=== PATIENT | female | born 2000 | race Caucasian/White ===

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

== ENCOUNTER 2021-03-07 10:21 | Emergency (ER) | payer OTHER, SELFPAY ==
[2021-03-07 10:27] VITALS: BP 144/83; PULSE 114; RESP 16; TEMP 36.5; O2SAT 98
--- NOTE | 2021-03-07 10:47 | ED.URI ---
HPI - URI/Sore Throat General Chief Complaint: Ear Stated Complaint: EARACHE/DRAINAGE/SINUS Time Seen by Provider: 03/07/21 10:46 Source: patient and RN notes reviewed Mode of arrival: ambulatory Limitations: no limitations History of Present Illness HPI Narrative: 20-year-old female presents with concern for nasal congestion, bilateral ear pain, sinus drainage, scratchy throat that started yesterday. She has been fully vaccinated for Covid. She denies fever, body aches, chills, sweats. Reports occasional cough to clear the mucus. Reports she took Advil sinus with no relief. MD elicited complaint: nasal congestion Related Data Home Medications Medication Instructions Recorded Confirmed escitalopram oxalate mg 03/07/21 Allergies Allergy/AdvReac Type Severity Reaction Status Date / Time Penicillins Allergy Mild HIVES Verified 03/07/21 10:28 Sulfa (Sulfonamide Allergy Mild HIVES Verified 03/07/21 10:28 Antibiotics) clindamycin Allergy Unknown JACINTO Verified 03/07/21 10:28 Review of Systems Review of Systems: CONSTITUTIONAL: Denies malaise, chills, sweats, or fever. EYES: Denies visual changes, redness, or discharge. ENT: Reports rhinorrhea, congestion, otalgia and scratchy throat. CARDIOVASCULAR: Denies chest pain, palpitations, or edema. RESPIRATORY: Reports occasional cough. Denies dyspnea. GASTROINTESTINAL: Denies abdominal pain, nausea, vomiting, diarrhea SKIN: Denies rash or itching. MUSCULOSKELETAL: Denies myalgia. NEUROLOGIC: Denies headache. All systems reviewed & are unremarkable except as noted in HPI and below PMFSH Past Medical History Medical History (Updated 03/07/21 @ 10:55 by Ngoc Olivarez NP) Depression Surgical History Surgical History (Updated 12/21/19 @ 20:10 by Alvarez Mendoza MD) No pertinent past surgical history Family History Family History Father Cleft lip Social History Social History Smoking status: Never smoker Substance use: never Gender identity (if verbalized by the patient): Female Spiritual care concerns: No Comments At time of signature, agree with nursing past medical, surgical, social and family history. There is no relevant family history pertinent to the presenting complaint Exam Narrative: GENERAL: Well-appearing, well-nourished, and in no acute distress. HEAD: Normocephalic EYES: PERRLA, conjunctivae clear ENT: Nares clear, left turbinates edematous and erythematous, clear discharge. Mucous membranes moist. TM pearly mena with sharp light reflex bilaterally; no tragal tenderness. Oropharynx not erythematous without lesions. Tonsils not enlarged and without exudate, no drooling, no hoarseness, no trismus, uvula midline. NECK: Supple. No lymphadenopathy CHEST: Clear to auscultation, breath sounds equal. No wheezing, rhonchi, rales, or stridor. No respiratory distress, speaks in full sentences. HEART: Regular rate and rhythm. No murmur heard. SKIN: Warm, dry, no rash. NEURO: Alert and oriented x3. PSYCH: Normal mood and affect Course Course Emergency Course: Patient is aware of diagnosis, understands and agrees to treatment plan. Anticipatory guidance given. Patient agrees to follow-up as directed and is aware of reasons to seek care at the emergency department. Portions of this record may have been created with voice recognition software Vital Signs Vital signs: Vital Signs Temperature 97.7 F 03/07/21 10:27 Pulse Rate 114 H 03/07/21 10:27 Respiratory Rate 16 03/07/21 10:27 Blood Pressure 144/83 H 03/07/21 10:27 Pulse Oximetry 98 03/07/21 10:27 Temperature 97.7 F 03/07/21 10:27 Pulse Rate 114 H 03/07/21 10:27 Respiratory Rate 16 03/07/21 10:27 Blood Pressure 144/83 H 03/07/21 10:27 Pulse Oximetry 98 03/07/21 10:27 Reviewed. Patient has been instructed to follow up with her primary care provider
== END 2021-03-07 11:08 | disposition home or self-care (01) ==
PROVIDERS: Emergency Provider Nurse Practitioner
DX: J06.9 Acute upper respiratory infection, unspecified (principal); F32.A Depression, unspecified
CPT/HCPCS: 99213; G0463

== ENCOUNTER 2022-04-21 17:38 | Emergency (ER) | payer BC, OTHER, SELFPAY ==
[2022-04-21 17:49] VITALS: BP 99/86; PULSE 122; RESP 16; TEMP 36.8; O2SAT 100
--- NOTE | 2022-04-21 18:25 | ED.URI ---
HPI - URI/Sore Throat General Chief Complaint: Upper Respiratory Infection Stated Complaint: SORE THROAT/BODY ACHES/SINUS CONGESTION Time Seen by Provider: 04/21/22 18:00 Source: patient, RN notes reviewed and old records reviewed Mode of arrival: ambulatory Limitations: no limitations History of Present Illness HPI Narrative: 21 year old female presents to [facility] care with complaints of sore throat ear pain, nasal congestion and body aches starting yesterday around 4pm. Patient reports that she has been taking DayQuil and NyQuil for her symptoms. Patient denies any known fevers, chills or sweats, has had COVID vaccinations but no flu shot. Patient reports that she had COVID in December and she had an ear infection in March. Patient states that she took home COVID test today which was negarive. MD elicited complaint: sore throat, rhinorrhea, nasal congestion and other (ear pain) Onset (ago): day(s) (yesterday at 4pm) Pain scale (0-10): 4 Description of mucous: clear Treatments prior to arrival: other (DayQuil and NyQuil) Related Data Home Medications Medication Instructions Recorded Confirmed escitalopram oxalate 10 mg tablet 10 mg PO DAILY 03/07/21 04/21/22 Allergies Allergy/AdvReac Type Severity Reaction Status Date / Time Penicillins Allergy Mild HIVES Verified 04/21/22 17:42 Sulfa (Sulfonamide Allergy Mild HIVES Verified 04/21/22 17:42 Antibiotics) clindamycin Allergy Unknown [facility] Verified 04/21/22 17:42 Review of Systems Review of Systems: CONSTITUTIONAL: Denies malaise, chills, sweats, or fever. EYES: Denies visual changes, redness, or discharge. ENT: Reports rhinorrhea, congestion, sinus pain, otalgia and sore throat. CARDIOVASCULAR: Denies chest pain, palpitations, or edema. RESPIRATORY: Denies cough.? Denies dyspnea. GASTROINTESTINAL: Denies abdominal pain, nausea, vomiting, diarrhea SKIN: Denies rash or itching. MUSCULOSKELETAL:Reports myalgia. NEUROLOGIC: Denies headache. All systems reviewed & are unremarkable except as noted in HPI and below PMFSH Past Medical History Medical History (Updated 04/22/22 @ 01:01 by Rosalia Stevenson NP) Anxiety and depression Depression Hidradenitis suppurativa Surgical History Surgical History (Updated 04/22/22 @ 01:01 by Rosalia Stevenson NP) History of tonsillectomy and adenoidectomy Family History Family History Father Cleft lip Social History Social History Smoking status: Never smoker Substance use: never Gender identity (if verbalized by the patient): Female Spiritual care concerns: No Comments At time of signature, agree with nursing past medical, surgical, social and family history. There is no relevant family history pertinent to the presenting complaint Exam Narrative: GENERAL: Well-appearing, well-nourished, and in no acute distress. HEAD: Normocephalic EYES: PERRLA, conjunctivae clear ENT: Nares clear, turbinates edematous and erythematous, clear discharge. Mucous membranes moist. TM pearly mena with dull light reflex bilaterally; no tragal tenderness. Oropharynx erythematous without lesions. Tonsils not present and without throat exudate, no drooling, no hoarseness, no trismus, uvula midline. NECK: Supple. No lymphadenopathy CHEST: Clear to auscultation, breath sounds equal. No wheezing, rhonchi, rales, or stridor. No respiratory distress, speaks in full sentences.no cough noted SAO2 100% on room air HEART: Regular rate and rhythm. No murmur heard. SKIN: Warm, dry, no rash. NEURO: Alert and oriented x3. PSYCH: Normal mood and affect Course Course Emergency Course: Patient is aware of diagnosis, understands and agrees to treatment plan.? Anticipatory guidance given.? Patient agrees to follow-up as directed and is aware of reasons to seek care at the emergency department. Portions o
== END 2022-04-21 18:34 | disposition home or self-care (01) ==
PROVIDERS: Emergency Provider Registered Nurse
DX: J06.9 Acute upper respiratory infection, unspecified (principal); F41.9 Anxiety disorder, unspecified; F32.A Depression, unspecified
CPT/HCPCS: 87804; 99213; G0463

== ENCOUNTER 2023-01-24 17:02 | Emergency (ER) | payer BC, OTHER, SELFPAY ==
[2023-01-24 17:43] VITALS: BP 147/94; PULSE 87; RESP 20; TEMP 36.6; O2SAT 100
[2023-01-24 17:57] VITALS: BP 116/70
--- NOTE | 2023-01-24 18:09 | ED.URI ---
HPI - URI/Sore Throat General Chief Complaint: Upper Respiratory Infection Stated Complaint: throat hurts,cough,migraine Time Seen by Provider: 01/24/23 17:55 Source: patient Mode of arrival: ambulatory Limitations: no limitations History of Present Illness HPI Narrative: 22-year-old female presents with complaint of low-grade fever, sore throat, cough, migraine starting this morning. Patient had negative home COVID test. Has not taking any [id number] medications to treat her symptoms. Denies nausea vomiting diarrhea all systems reviewed and negative except as noted above. Related Data Home Medications Medication Instructions Recorded Confirmed escitalopram oxalate 10 mg tablet 10 mg PO DAILY 03/07/21 01/24/23 bupropion HCl 150 mg 24 hr tablet, 150 mg PO DIRECTED 01/24/23 01/24/23 extended release meclizine 12.5 mg tablet 12.5 mg PO DIRECTED PRN 01/24/23 01/24/23 Dizziness Or Vertigo Allergies Allergy/AdvReac Type Severity Reaction Status Date / Time Penicillins Allergy Mild HIVES Verified 01/24/23 17:10 Sulfa (Sulfonamide Allergy Mild HIVES Verified 01/24/23 17:10 Antibiotics) clindamycin Allergy Unknown JACINTO Verified 01/24/23 17:10 Review of Systems Review of Systems: CONSTITUTIONAL: Denies fever, fatigue. Denies chills, or sweats. EYES: Denies visual changes, redness, or discharge. ENT: Denies rhinorrhea, congestion, sore throat, or otalgia. CARDIOVASCULAR: Denies chest pain, palpitations, or edema. RESPIRATORY: Reports cough. Denies dyspnea. GASTROINTESTINAL: Denies abdominal pain, nausea, vomiting, or diarrhea. GENITOURINARY: Denies dysuria or hematuria. SKIN: Denies rash or itching. MUSCULOSKELETAL: Denies back pain, joint pain, or myalgia. NEUROLOGIC: reports headache. Denies numbness, or weakness. PSYCHIATRIC: Denies anxiety or depression. All other systems reviewed are negative, except as documented in HPI. [facility] Past Medical History Medical History (Updated 01/24/23 @ 18:12 by April Whitt NP) Anxiety and depression Depression Hidradenitis suppurativa Surgical History Surgical History (Updated 04/22/22 @ 01:01 by Rosalia L. Elva, [employer]) History of tonsillectomy and adenoidectomy Family History Family History Father Cleft lip Social History Social History Smoking status: Never smoker Substance use: never Gender identity (if verbalized by the patient): Female Spiritual care concerns: No Comments At time of signature, agree with nursing past medical, surgical, social and family history. There is no relevant family history pertinent to the presenting complaint. Exam Narrative: GENERAL: This is a well-nourished, well-developed patient, in no apparent distress. HEAD: normocephalic, atraumatic. EYES: PERRL. Sclera clear/white. Vision is grossly intact. EARS: External ears normal, auditory canals clear and without drainage, TMs normal without perforation. Hearing grossly intact. NOSE: External nose normal with no obvious nasal discharge, nares without redness, no rhinorrhea. THROAT: Mucous membranes moist, posterior pharynx clear. NECK: Neck supple, non-tender without lymphadenopathy, masses or thyromegaly. CARDIOVASCULAR: Regular rate and rhythm without murmurs, gallops, or rubs. RESPIRATORY: Clear to auscultation. Breath sounds equal bilaterally. No wheezes, rales, or rhonchi. SKIN: warm, Dry, intact with no suspicious lesions or rash, good texture and turgor. NEURO: awake, alert, and oriented to person, place and time. There were no obvious focal neurologic abnormalities. EXTREMITIES: No joint tenderness, effusion, or edema noted. Course Course Level of Care: Express Care Visit Vital Signs Vital signs: Vital Signs Temperature 36.6 C 01/24/23 17:43 Pulse Rate 87 01/24/23 17:43 Respiratory Rate 20 01/24
== END 2023-01-24 18:16 | disposition home or self-care (01) ==
PROVIDERS: Emergency Provider Nurse Practitioner Family
DX: J06.9 Acute upper respiratory infection, unspecified (principal); F41.9 Anxiety disorder, unspecified; F32.A Depression, unspecified; Z79.899 Other long term (current) drug therapy
CPT/HCPCS: 87081; 87804; 87880; 99213; G0463

== ENCOUNTER 2023-03-28 16:26 | Emergency (ER) | payer BC, OTHER, SELFPAY ==
[2023-03-28 18:19] VITALS: BP 114/90; PULSE 100; RESP 16; TEMP 36.8; O2SAT 100
--- NOTE | 2023-03-28 19:00 | ED.URI ---
HPI - URI/Sore Throat General Chief Complaint: Upper Respiratory Infection Stated Complaint: Sore Throat;Bodyache;Fever Time Seen by Provider: 03/28/23 19:00 Source: patient, RN notes reviewed and old records reviewed Mode of arrival: ambulatory Limitations: no limitations History of Present Illness HPI Narrative: 22 year old female who [facility] with complaints of sore throat, body ache and stated fevers since yesterday. Patient reports that she did home COVID test which was negative.. Patient reports that she has been taking Tylenol and has been using cough drops to soothe her throat. Patient reports that she has only had low grade temperature highest 99.8F. 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 MD elicited complaint: fever, sore throat and other (bodyaches) Pertinent past history: asthma (childhood) and other (tonsillitis has had T&A) Onset (ago): day(s) (day 2 symptoms) Related Data Home Medications Medication Instructions Recorded Confirmed escitalopram oxalate 10 mg tablet 10 mg PO DAILY 03/07/21 03/28/23 bupropion HCl 150 mg 24 hr tablet, 150 mg PO DIRECTED 01/24/23 03/28/23 extended release conjugated estrogens 0.625 mg/gram 1 applic topical DIRECTED 03/28/23 03/28/23 vaginal cream (Premarin) hydrocortisone 2.5 % topical cream 1 applic topical DIRECTED 03/28/23 03/28/23 with perineal applicator verapamil 120 mg tablet,extended 120 mg PO DIRECTED 03/28/23 03/28/23 release Allergies Allergy/AdvReac Type Severity Reaction Status Date / Time Penicillins Allergy Mild HIVES Verified 03/28/23 18:15 Sulfa (Sulfonamide Allergy Mild HIVES Verified 03/28/23 18:15 Antibiotics) clindamycin Allergy Unknown JACINTO Verified 03/28/23 18:15 Review of Systems Review of Systems: CONSTITUTIONAL: reports malaise, chills, sweats, low grade fever. EYES: Denies visual changes, redness, or discharge. ENT: Reports rhinorrhea, congestion,no sinus pain, otalgia and sore throat. CARDIOVASCULAR: Denies chest pain, palpitations, or edema. RESPIRATORY: Reports no acute cough.? Denies dyspnea. GASTROINTESTINAL: Denies abdominal pain, nausea, vomiting, diarrhea SKIN: Denies rash or itching. MUSCULOSKELETAL:Positive for myalgia. NEUROLOGIC: Positive headache. All systems reviewed & are unremarkable except as noted in HPI and below PMFSH Past Medical History Medical History (Updated 03/30/23 @ 12:05 by Rosalia Stevenson NP) Anxiety and depression Depression Hidradenitis suppurativa Surgical History Surgical History (Updated 04/22/22 @ 01:01 by Rosalia Stevenson NP) History of tonsillectomy and adenoidectomy Family History Family History Father Cleft lip Social History Social History Smoking status: Never smoker Substance use: never Gender identity (if verbalized by the patient): Female Spiritual care concerns: No Comments At time of signature, agree with nursing past medical, surgical, social and family history. There is no relevant family history pertinent to the presenting complaint Exam Narrative: GENERAL: Well-appearing, well-nourished, and in no acute distress. HEAD: Normocephalic EYES: PERRLA, conjunctivae clear ENT: Nares clear, turbinates edematous and erythematous, clear discharge. Mucous membranes moist. TM pearly mena with dull light reflex bilaterally; no tragal tenderness. Oropharynx erythematous without lesions. Tonsils not present and throat without exudate, no drooling, no hoarseness, no trismus, uvula midline.post nasal drainage NECK: Supple. No lymphadenopathy CHEST: Clear to auscultation, breath sounds equal. No wheezing, rhonchi, rales, or stridor. No respiratory distress, speaks in full sentences.SAO2 100% on room air
== END 2023-03-28 19:23 | disposition home or self-care (01) ==
PROVIDERS: Emergency Provider Registered Nurse
DX: J06.9 Acute upper respiratory infection, unspecified (principal); Z79.899 Other long term (current) drug therapy
CPT/HCPCS: 87081; 87804; 87880; 99213; G0463

== ENCOUNTER 2023-04-02 11:05 | Emergency (ER) | payer BC, OTHER, SELFPAY ==
[2023-04-02 11:24] VITALS: BP 126/81; PULSE 72; RESP 16; TEMP 36.8; O2SAT 99
--- NOTE | 2023-04-02 12:14 | ED.EAR ---
HPI - Ear Problem General Chief complaint: Ear Stated complaint: both ears painful Time Seen by Provider: 04/02/23 12:14 Source: patient Mode of arrival: ambulatory Limitations: no limitations History of Present Illness HPI Narrative: 22 yo F presents with c/o sore throat, congestion for 5 days. Sore throat resolved. Had fever for only 1 day. Denies N/v/D. Had neg strep 5 days ago at . States now having really bad pain to both ears. Ear pain worse with swallowing and yawning. pt use to use an ear oil for dry canals but can't find it. requesting refill. All systems reviewed and negative except as noted above. Related Data Home Medications Medication Instructions Recorded Confirmed escitalopram oxalate 10 mg tablet 10 mg PO DAILY 03/07/21 03/28/23 bupropion HCl 150 mg 24 hr tablet, 150 mg PO DIRECTED 01/24/23 03/28/23 extended release conjugated estrogens 0.625 mg/gram 1 applic topical DIRECTED 03/28/23 03/28/23 vaginal cream (Premarin) verapamil 120 mg tablet,extended 120 mg PO DIRECTED 03/28/23 03/28/23 release Allergies Allergy/AdvReac Type Severity Reaction Status Date / Time Penicillins Allergy Mild HIVES Verified 04/02/23 11:51 Sulfa (Sulfonamide Allergy Mild HIVES Verified 04/02/23 11:51 Antibiotics) clindamycin Allergy Unknown JACINTO Verified 04/02/23 11:51 Review of Systems Review of Systems: CONSTITUTIONAL: Denies fever, chills, or sweats. EYES: Denies visual changes, redness, or discharge. ENT: Reports rhinorrhea, congestion. Denies sore throat. Report otalgia. CARDIOVASCULAR: Denies chest pain, palpitations, or edema. RESPIRATORY: Denies cough or dyspnea. GASTROINTESTINAL: Denies abdominal pain, nausea, vomiting, or diarrhea. GENITOURINARY: Denies dysuria or hematuria. SKIN: Denies rash or itching. MUSCULOSKELETAL: Denies back pain, joint pain, or myalgia. NEUROLOGIC: Denies headache, numbness, or weakness. PSYCHIATRIC: Denies anxiety or depression. All other systems reviewed are negative, except as documented in HPI. [facility] Past Medical History Medical History (Updated 04/02/23 @ 12:26 by April L. Whitt, [employer]ARMACY BU[employer]ER) Anxiety and depression Depression Hidradenitis suppurativa Surgical History Surgical History (Updated 04/22/22 @ 01:01 by Rosalia Stevenson NP) History of tonsillectomy and adenoidectomy Family History Family History Father Cleft lip Social History Social History Smoking status: Never smoker Substance use: never Gender identity (if verbalized by the patient): Female Spiritual care concerns: No Comments At time of signature, agree with nursing past medical, surgical, social and family history. There is no relevant family history pertinent to the presenting complaint. Exam Narrative: GENERAL: This is a well-nourished, well-developed patient, in no apparent distress. HEAD: normocephalic, atraumatic. EYES: PERRL. Sclera clear/white. Vision is grossly intact. EARS: External ears normal, auditory canals clear and without drainage, TMs normal without perforation. Hearing grossly intact. NOSE: External nose normal with clear nasal drainage, moderate congestion, erythema and swelling to bilateral nares. THROAT: Mucous membranes moist, Mild erythema, postnasal drainage. Tonsils absent. NECK: Neck supple, non-tender without lymphadenopathy, masses or thyromegaly. CARDIOVASCULAR: Regular rate and rhythm without murmurs, gallops, or rubs. RESPIRATORY: Clear to auscultation. Breath sounds equal bilaterally. No wheezes, rales, or rhonchi. SKIN: warm, Dry, intact with no suspicious lesions or rash, good texture and turgor. NEURO: awake, alert, and oriented to person, place and time. There were no obvious focal neurologic abnormalities. EXTREMITIES: No joint tenderness, effusion, or edema noted. No calf tenderness. Negative Homans sign bilater
== END 2023-04-02 12:29 | disposition home or self-care (01) ==
PROVIDERS: Emergency Provider Nurse Practitioner Family
DX: J01.90 Acute sinusitis, unspecified (principal); H92.03 Otalgia, bilateral; F41.9 Anxiety disorder, unspecified; F32.A Depression, unspecified
CPT/HCPCS: 99213; G0463

== ENCOUNTER 2023-07-02 13:10 | Emergency (ER) | payer BC, OTHER, SELFPAY ==
[2023-07-02 13:23] VITALS: BP 116/93; PULSE 104; RESP 16; TEMP 36.4; O2SAT 98
--- NOTE | 2023-07-02 14:10 | ED.EYEPROB ---
HPI - Eye Problem General Chief complaint: Eye Problems Stated complaint: [facility] eye Time Seen by Provider: 07/02/23 13:33 Source: patient and RN notes reviewed Mode of arrival: ambulatory Limitations: no limitations History of Present Illness HPI Narrative: Patient presents today complaining of left eye redness with green drainage and photophobia. Symptoms began today. Daughter with similar symptoms. No recent illness. No vision changes. She wears glasses but no contacts. Related Data Home Medications Medication Instructions Recorded Confirmed bupropion HCl 150 mg 24 hr tablet, 150 mg PO DIRECTED 01/24/23 07/02/23 extended release conjugated estrogens 0.625 mg/gram 1 applic topical DIRECTED 03/28/23 07/02/23 vaginal cream (Premarin) verapamil 120 mg tablet,extended 120 mg PO DIRECTED 03/28/23 07/02/23 release escitalopram oxalate 20 mg tablet 20 mg PO DAILY 07/02/23 07/02/23 Allergies Allergy/AdvReac Type Severity Reaction Status Date / Time Penicillins Allergy Mild HIVES Verified 04/02/23 11:51 Sulfa (Sulfonamide Allergy Mild HIVES Verified 04/02/23 11:51 Antibiotics) clindamycin Allergy Unknown JACINTO Verified 04/02/23 11:51 Review of Systems Review of Systems: CONSTITUTIONAL: Denies body aches, fever, chills, or sweats. EYES: Left eye redness and drainage, photophobia. ENT: Denies rhinorrhea, congestion, sore throat, or otalgia. CARDIOVASCULAR: Denies chest pain, palpitations, or edema. RESPIRATORY: Denies cough or dyspnea. GASTROINTESTINAL: Denies abdominal pain, nausea, vomiting, or diarrhea. GENITOURINARY: Denies dysuria or hematuria. SKIN: Denies rash, itching, or wounds. MUSCULOSKELETAL: Denies back pain, joint pain, or myalgia. NEUROLOGIC: Denies headache, numbness, tingling, or weakness. PSYCH: Denies depression or anxiety. [facility] Past Medical History Medical History Anxiety and depression Depression Hidradenitis suppurativa Surgical History Surgical History History of tonsillectomy and adenoidectomy Family History Family History Father Cleft lip Social History Social History Smoking status: Never smoker Substance use: never Gender identity (if verbalized by the patient): Female Spiritual care concerns: No Comments At time of signature, I have reviewed and agree with nursing past medical, surgical, social and family history unless otherwise noted. Please see nursing chart for further information. There is no relevant family history pertinent to the presenting complaint Exam Narrative: GENERAL: Well-appearing, well-nourished, and in no acute distress. HEAD: Normocephalic, atraumatic. EYES: EOMI. PERRL. Left eye: Mildly injected conjunctiva with mild chemosis. Small amount of green drainage in the inner canthus. Lids and lashes normal. Right eye: Normal ENT: Mucous membranes pink and moist. NECK: Normal AROM. CHEST: No respiratory distress. EXTREMITIES: Normal range of motion. No edema. SKIN: Warm, dry, no rash. Capillary refill normal. Normal skin turgor. NEURO: No focal deficits. Alert and oriented x3. Gait steady. PSYCH: Normal affect. No signs of depression or anxiety. Course Course Level of Care: Express Care Visit Vital Signs Vital signs: Vital Signs Temperature 97.5 F L 07/02/23 13:23 Pulse Rate 104 H 07/02/23 13:23 Respiratory Rate 16 07/02/23 13:23 Blood Pressure 116/93 H 07/02/23 13:23 Pulse Oximetry 98 07/02/23 13:23 Temperature 97.5 F L 07/02/23 13:23 Pulse Rate 104 H 07/02/23 13:23 Respiratory Rate 16 07/02/23 13:23 Blood Pressure 116/93 H 07/02/23 13:23 Pulse Oximetry 98 07/02/23 13:23 Reviewed MDM - Eye Problem MDM Narrative Med
== END 2023-07-02 13:55 | disposition home or self-care (01) ==
PROVIDERS: Emergency Provider Nurse Practitioner
DX: H10.32 Unspecified acute conjunctivitis, left eye (principal); F41.9 Anxiety disorder, unspecified; F32.A Depression, unspecified
CPT/HCPCS: 99213; G0463